=== PATIENT | female | born 1960 | race Caucasian/White ===

== ENCOUNTER → 2016-06-08 | Outpatient (REF) | payer OTHER ==
[2016-06-08 18:45] LABS: PERCENT SATURATION 7.2 % (13.2-37.4)
== END ==
LOC: M LAB REF 16:52
PROVIDERS: ATTEND Internal Medicine
DX: D50.9 Iron deficiency anemia, unspecified (principal)

== ENCOUNTER → 2016-10-05 | Outpatient (CLI) | payer OTHER ==
[~2016-10-05] VITALS: Ht 157.5 cm; Wt 52.2 kg
[~2016-10-05] MED LIST: LIDOCAINE 2% INJ 100 MG/5 ML SDV (FOR ANES.) As Ordered ONE; NS 1,000 ML IV ONE; PROBCAP4 PO; PROPOFOL 500 MG/50 ML VIAL As Ordered ONE; VITA10006 PO; VITA100072 PO; VITA500055 PO
--- NOTE | 2016-10-05 11:20 | ROOR ---
Patient Name: Maria De Jesus Bryant Procedure Date: 10/05/2016 11:07 AM Date of : 1960 Age: 56 Room: [facility] Gender: Female Note Status: Finalized Procedure: Colonoscopy Indications: Screening for colorectal malignant neoplasm Providers: Jamey CAMPBELL MD Referring MD: VINNIE POWERS JR, MD Requesting Provider: Medicines: Monitored Anesthesia Care Complications: No immediate complications. Procedure: Pre-Anesthesia Assessment: - The heart rate, respiratory rate, oxygen saturations, blood pressure, adequacy of pulmonary ventilation, and response to care were monitored throughout the procedure. The Colonoscope was introduced through the anus and advanced to the cecum, identified by appendiceal orifice and ileocecal valve. The colonoscopy was performed without difficulty. The patient tolerated the procedure well. The quality of the bowel preparation was good. Findings: The perianal and digital rectal examinations were normal. (Exam: Complete, Prep: Good or Excellent.) The entire examined colon appeared normal on direct and retroflexion views. Impression: - The colon is normal on direct and retroflexion views. - No specimens collected. Recommendation: - Repeat colonoscopy in 10 years for screening purposes. Jamey Campbell MD Jamey CAMPBELL MD 10/05/2016 11:20:18 AM This report has been signed electronically. Number of Addenda: 0 Note Initiated On: 10/05/2016 11:07 AM Estimated Blood Loss: Estimated blood loss: none.
[2016-10-05 11:45] VITALS: BP 117/58
== END | disposition home or self-care (01) ==
LOC: M OPP 09:35
PROVIDERS: ATTEND Internal Medicine Gastroenterology
DX: Z12.11 Encounter for screening for malignant neoplasm of colon (principal); E03.9 Hypothyroidism, unspecified; Z88.8 Allergy status to other drugs, medicaments and biological substances; Z79.899 Other long term (current) drug therapy; Z80.0 Family history of malignant neoplasm of digestive organs

== ENCOUNTER → 2017-03-06 | Outpatient (REF) | payer OTHER ==
[~2017-03-06] MED LIST changes: -LIDOCAINE 2% INJ 100 MG/5 ML SDV (FOR ANES.) As Ordered ONE; -NS 1,000 ML IV ONE; -PROPOFOL 500 MG/50 ML VIAL As Ordered ONE
== END ==
LOC: M LAB REF 10:45
PROVIDERS: ATTEND Physician Assistant
DX: N39.0 Urinary tract infection, site not specified (principal)

== ENCOUNTER → 2017-07-19 | Outpatient (REF) | payer OTHER | LOC: M SFHCWAGY 13:55 | DX: Z12.4 Encounter for screening for malignant neoplasm of cervix (principal) ==

== ENCOUNTER → 2017-12-05 | Outpatient (REF) | payer OTHER ==
[2017-12-06 14:57] LABS: RHEUMATOID FACTOR QUANT < 10.0 IU/ML (<15.0); TOTAL PROTEIN 7.5 GM/DL (6.4-8.2)
[2017-12-07 14:20] LABS: ANTINUCLEAR ANTIBODIES DIRECT Negative (Negative); SJOGREN'S ANTI SS-A <0.2 AI (0.0-0.9); SJOGREN'S ANTI SS-B <0.2 AI (0.0-0.9)
== END ==
LOC: M LAB REF 12-06 13:36
DX: M79.1 Myalgia (principal); R00.1 Bradycardia, unspecified; R53.83 Other fatigue

== ENCOUNTER → 2018-06-07 | Outpatient (CLI) | payer OTHER ==
--- NOTE | 2018-06-13 08:35 | DEXA ---
AP SPINE L1 - L4 0.754 -3.6 -2.7 LT FEMUR TOTAL 0.652 -2.8 -2.1 LT NECK 0.650 -2.8 -1.7 RT FEMUR TOTAL 0.683 -2.6 -1.9 RT NECK 0.659 -2.7 -1.7 TOTAL BODY TOTAL OTHER COMMENTS: There is osteoporosis of the spine and hips. The decreased density of the spine does represent a significant change. The decreased density of the left hip does represent a significant change. The decreased density of the right hip does represent a significant change. The density of the spine has decreased 13.7% since the initial exam on 12/17/2011. The spine density has decreased 11.9% since the most recent exam on 04/09/2013. The density of the left hip has decreased 7.6% since the initial exam on 12/17/2011. The density of the left hip has decreased 6.6% since the most recent exam on 04/09/2013. The density of the right hip has decreased 8.0% since the initial exam on 12/17/2011. The density of the right hip has decreased 5.7% since the most recent exam on 04/09/2013. FOLLOW-UP: Recommendation for the next bone density exam: 2 years. JAYDEN
== END ==
LOC: M WHC 15:00
PROVIDERS: ATTEND Internal Medicine
DX: M81.0 Age-related osteoporosis without current pathological fracture (principal); M85.851 Other specified disorders of bone density and structure, right thigh; M85.852 Other specified disorders of bone density and structure, left thigh; M85.88 Other specified disorders of bone density and structure, other site

== ENCOUNTER → 2019-08-01 | Outpatient (REF) | payer OTHER ==
[~2019-08-01] MED LIST changes: +VITA100018 PO; -VITA100072 PO
[2019-08-02 13:07] LABS: RHEUMATOID FACTOR QUANT < 10.0 IU/ML (<15.0); URIC ACID 3.2 MG/DL (2.6-6.0)
== END ==
LOC: M LAB REF 12:12
PROVIDERS: ATTEND Internal Medicine
DX: M25.511 Pain in right shoulder (principal)

== ENCOUNTER → 2020-08-12 | Outpatient (REF) | payer OTHER ==
[2020-08-12 13:00] LABS: C REACTIVE PROTEIN QUANTITATIV < 0.30 MG/DL (0.00-0.30)
[2020-08-12 13:12] LABS: CORTISOL AM 16.5 UG/DL (4.3-22.4)
== END ==
LOC: M LAB REF 11:29
PROVIDERS: ATTEND Internal Medicine
DX: M15.9 Polyosteoarthritis, unspecified (principal); R53.83 Other fatigue

== ENCOUNTER → 2020-10-23 | Outpatient (CLI) | payer OTHER ==
--- NOTE | 2020-10-23 16:56 | REP ---
INDICATION: RT CAROTID BRUIT. COMPARISON: None. TECHNIQUE: Duplex FINDINGS: Right carotid: The PSV in the CCA measures 84.2 centimeters/second. The PSV in the ICA measured 64 centimeters/second. Ratio 0.73 Left carotid: The PSV in the CCA measured 106 centimeters/second. The PSV in the ICA measured 72 centimeters/second. Ratio 0.68 Antegrade flow is noted in both vertebral arteries. IMPRESSION: No stenosis in either carotid system. Antegrade flow present in both vertebral arteries. <Electronically signed by Dandre Fuentes > 10/23/20 [id number]
== END ==
LOC: M RAD 15:36
PROVIDERS: ATTEND Internal Medicine
DX: I65.21 Occlusion and stenosis of right carotid artery (principal)

== ENCOUNTER → 2021-08-13 | Outpatient (REF) | payer OTHER | LOC: M LAB REF 12:15 | PROVIDERS: ATTEND Internal Medicine | DX: R20.2 Paresthesia of skin (principal) ==

== ENCOUNTER → 2021-10-19 | Outpatient (REF) | payer OTHER | LOC: M PLALAB 16:23 | PROVIDERS: ATTEND Obstetrics & Gynecology | DX: Z01.419 Encounter for gynecological examination (general) (routine) without abnormal findings (principal) ==

== ENCOUNTER → 2021-11-03 | Outpatient (CLI) | payer OTHER | LOC: M EKG 07:54 | PROVIDERS: ATTEND Physician Assistant Medical | DX: R00.2 Palpitations (principal) ==

== ENCOUNTER → 2023-08-19 | Outpatient (REF) | payer OTHER | LOC: M LAB REF 16:17 | PROVIDERS: ATTEND Internal Medicine | DX: M81.0 Age-related osteoporosis without current pathological fracture (principal) ==

== ENCOUNTER → 2024-01-30 | Outpatient (CLI) | payer OTHER | LOC: M WUC 09:18 | PROVIDERS: ATTEND Student in an Organized Health Care Education/Training Program | DX: M25.531 Pain in right wrist (principal) ==